=== PATIENT | male | born 1990 | race Caucasian/White ===

== ENCOUNTER 2017-04-27 13:40 | Emergency (ER) | payer SELFPAY ==
[2017-04-27] MEDS ORDERED: HYDROcodone/Acetaminophen 10/325 mg Tablet ONE (14:40)
--- NOTE | 2017-04-27 15:09 | RAD ---
LUMBAR SPINE 2 VIEWS: Date: 04/27/17 PROVIDED CLINICAL HISTORY: Back pain. FINDINGS: Five non-rib bearing lumbar-type vertebral bodies are present. Lumbar alignment appears normal. Verte bral body heights appear preserved. Sacroiliac joints appear unremarkable. IMPRESSION: No evidence for an acute osseous abnormality. POS: [facility]
--- NOTE | 2017-04-27 15:10 | RAD ---
THORACIC SPINE RADIOGRAPHS 3 VIEWS: Date: 04/27/17 PROVIDED CLINICAL HISTORY: Back pain. FINDINGS: Thoracic alignment appears normal. Vertebral body heights appear preserved. Pedicles appear intact. IMPRESSION: No evidence for an acute osseous abnormality. POS: [facility]
== END 2017-04-27 15:45 | disposition home or self-care (01) ==
LOC: ERS 13:40
DX: S23.3XXA Sprain of ligaments of thoracic spine, initial encounter (principal); I10 Essential (primary) hypertension; Z87.891 Personal history of nicotine dependence; X50.1XXA Overexertion from prolonged static or awkward postures, initial encounter
CPT/HCPCS: 72072; 72100

== ENCOUNTER 2018-09-29 11:55 | Emergency (ER) | payer SELFPAY ==
--- NOTE | 2018-09-29 12:28 | CT ---
CT BRAIN WITHOUT CONTRAST: HISTORY: Headache, migraine FINDINGS: No evidence of acute infarct, hemorrhage, midline shift or abnormal extra-axial fluid collections is seen. The ventricular size is appropriate and the basilar cisterns are patent. The bony calvarium is intact. The visualized paranasal sinuses and mastoid air cells are well aerated. IMPRESSION: No CT evidence of acute intracranial process.
[2018-09-29] MEDS ORDERED: Ondansetron PF 4 MG/2 ML Vial ONE (13:41)
[2018-09-29] MEDS ORDERED: diphenhydrAMINE 50 MG/ML VIAL ONE (13:41)
[2018-09-29] MEDS ORDERED: Metoclopramide HCl 10 MG/2 ML VIAL ONE (13:41)
[2018-09-29] MEDS ORDERED: Ketorolac Tromethamine 30 MG/ML VIAL ONE (13:41)
[2018-09-29] MEDS ORDERED: Morphine 4 MG/ML VIAL ONE (13:41)
[2018-09-29] MEDS ORDERED: Acetaminophen 500 MG TAB ONE (13:41)
[2018-09-29] MEDS ORDERED: ISOVUE-370 76%-LOCM 1 ML ONE (15:13)
--- NOTE | 2018-09-29 15:13 | CT ---
Exam: CTA neck with contrast CTA head with contrast HISTORY: Occipital lobe headache that began when turning his neck COMPARISON: None TECHNIQUE: 1. Multiple contiguous axial images were obtained and a CTA of the neck with contrast. 3-D sagittal a nd coronal MIP reformats were performed. 2. Multiple contiguous axial images were obtained and a CTA of the head with contrast. 3-D sagittal a nd coronal MIP reformats were performed. FINDINGS: CTA NECK: Aortic arch: Normal origin of the carotid arteries from the arch. No significant atherosclerotic dise ase of the subclavian arteries. Right common carotid artery: No significant atherosclerotic disease or narrowing Left common carotid artery: No significant atherosclerotic disease or narrowing Right internal carotid artery: No significant atherosclerotic disease, dissection, or narrowing per N ASCET criteria Right external carotid artery: No significant atherosclerotic disease or narrowing Left internal carotid artery: No significant atherosclerotic disease, dissection, or narrowing per N ASCET criteria Left external carotid artery: No significant atherosclerotic disease or narrowing Right cervical vertebral artery: No significant atherosclerotic disease, dissection, or narrowing Left cervical vertebral artery: No significant atherosclerotic disease, dissection, or narrowing No cervical adenopathy. The lung apices are unremarkable. The osseous structures are unremarkable. CTA HEAD: Right intracranial internal carotid artery: Patent without narrowing or occlusion Right anterior cerebral artery: Patent without narrowing or occlusion Right middle cerebral artery: Patent without narrowing or occlusion Left intracranial internal carotid artery: Patent without narrowing or occlusion Left anterior cerebral artery: Patent without narrowing or occlusion Left middle cerebral artery: Patent without narrowing or occlusion No aneurysmal dilatation is seen in the anterior circulation. Right vertebral artery: Patent without narrowing or occlusion Left vertebral artery: Patent without narrowing or occlusion Basilar artery: Patent without narrowing or occlusion The posterior cerebral arteries and cerebellar arteries are patent without narrowing or occlusion. No aneurysmal dilatation is seen in the posterior circulation. Mucous retention cysts are seen in the maxillary sinuses. IMPRESSION: 1. No significant CTA abnormality of the neck 2. No significant CTA abnormality of the head
== END 2018-09-29 16:03 ==
LOC: ERS 11:55
DX: R51 Headache (principal); I10 Essential (primary) hypertension; F32.9 Major depressive disorder, single episode, unspecified; F17.220 Nicotine dependence, chewing tobacco, uncomplicated
CPT/HCPCS: 70450; 70496; 70498; 96361; 96365; 96375; J1200; J1885; J2270; J2405; J2765

== ENCOUNTER 2019-04-20 07:56 | Emergency (ER) | payer SELFPAY ==
--- NOTE | 2019-04-20 08:24 | RAD ---
EXAM: CHEST TWO VIEWS 04/20/2019 8:22 AM HISTORY: Midsternal chest pain COMPARISON: None. FINDINGS: Lungs: No acute airspace consolidation. Heart: Normal in size and contour. Pulmonary Vessels: Normal. Costophrenic Angles: Clear. Pneumothorax: None. Osseous Structures: Intact. Additional Findings: None. IMPRESSION: No significant acute intrathoracic disease.
[2019-04-20 08:39] LABS: #Eosinphils 0.1 thou/uL (0.0-0.7); #Lymphocytes 1.8 thou/uL (1.20-3.40); #Monocytes 0.4 thou/uL (0.11-0.59); #Neutrophils 3.1 thou/uL (1.40-6.50); %Basophils 0.9 % (0.0-1.0); %Eosinophils 1.7 % (0.0-10.0); %Lymphocytes 33.4 % (21.0-51.0); %Monocytes 6.8 % (0.0-10.0); %Neutrophils 57.2 % (42.0-75.0); Hemoglobin 16.3 g/dL (14.0-18.0); Mean Corpuscular HGB CONC 34.5 g/dL (32.0-36.0); Mean Corpuscular Hemoglobin 31.7 pg (27.0-31.0); Mean Corpuscular Volume 92.1 fL (78.0-98.0); Mean Platelet Volume 9.3 fL (7.4-10.4); Platelet Count 155 thou/uL (130-400); RBC Distribution Width 11.5 % (11.5-14.5); Red Blood Cell (RBC) Count 5.15 mill/uL (4.70-6.10); White Blood Cell (WBC) Count 5.3 thou/uL (4.8-10.8)
[2019-04-20 08:56] LABS: ALT (SGPT) 22 U/L (8-55); AST (SGOT) 21 U/L (5-34); Albumin 4.6 g/dL (3.5-5.0); Alkaline Phosphatase 50 U/L (40-110); Anion Gap 11 mmol/L (10-20); BUN (Urea Nitrogen) 13 mg/dL (8.9-20.6); Bilirubin, Total 0.7 mg/dL (0.2-1.2); Calc. Creatinine Clearance 0 mL/min (70-130); Calcium 9.5 mg/dL (7.8-10.44); Carbon Dioxide 27 mmol/L (22-29); Chloride 103 mmol/L (98-107); Estimated GFR-MDRD Greater than 90; Globulin 2.1 g/dL (2.4-3.5); Glucose 96 mg/dL (70-105); Lipase 43 U/L (8-78); Potassium 4.2 mmol/L (3.5-5.1); Protein, Total 6.7 g/dL (6.0-8.3); Sodium 137 mmol/L (136-145)
[2019-04-20] MEDS ORDERED: Lidocaine Viscous Sol 2% 15 ml UD Cup ONE (09:36)
[2019-04-20] MEDS ORDERED: Mag-Al 1200 mg/1200 mg/30 ML UDCUP ONE (09:36)
[2019-04-20 11:53] LABS: Troponin I Less than 0.010 ng/mL (< 0.028)
== END 2019-04-20 13:45 | disposition home or self-care (01) ==
LOC: ERS 07:56
DX: R07.9 Chest pain, unspecified (principal); I10 Essential (primary) hypertension; F32.9 Major depressive disorder, single episode, unspecified; F17.210 Nicotine dependence, cigarettes, uncomplicated
CPT/HCPCS: 36415; 71046; 80053; 83690; 84484; 85025; 93005; 94760